=== PATIENT | male | born 1960 | race Two or more races ===

== ENCOUNTER 2020-07-11 15:26 | Emergency (ER) | payer OTHER ==
[~2020-07-11] VITALS: Ht 185.4 cm; Wt 90.7 kg
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
--- NOTE | 2020-07-11 15:49 | NUR ---
DR RAMIREZ AT BEDSIDE
[2020-07-11 16:15] LABS: BASOPHILS # (AUTO) 0.1 /CMM (0.0-0.2); BASOPHILS % (AUTO) 0.6 % (0.0-2.0); EOSINOPHILS % (AUTO) 1.2 % (0.0-6.0); HEMATOCRIT 45 % (39-51); HEMOGLOBIN 15.4 g/dL (13.5-17.5); LYMPHOCYTES # (AUTO) 2.2 /CMM (0.8-4.8); LYMPHOCYTES % (AUTO) 15.9 % (20.0-44.0); MEAN CORPUSCULAR HGB CONC 34 g/dl (31.0-36.0); MEAN CORPUSCULAR VOLUME 90 fL (80-96); MONOCYTES # (AUTO) 0.8 /CMM (0.1-1.30); MONOCYTES % (AUTO) 5.5 % (2.0-12.0); NEUTROPHILS # (AUTO) 10.6 /CMM (1.8-8.9); NEUTROPHILS % (AUTO) 76.8 % (43.0-81.0); PLATELET COUNT (AUTO) 356 /CMM (150-450); RED BLOOD CELL COUNT(AUTO) 5.02 MIL/uL (4.5-6.0); WHITE BLOOD COUNT (AUTO) 13.7 K/uL (4.3-11.0)
[2020-07-11 16:33] LABS: ALANINE AMINOTRANSFERASE 36 U/L (12-78); ALBUMIN 3.9 g/dL (3.4-5.0); ALKALINE PHOSPHATASE 83 U/L (46-116); ASPARTATE AMINOTRANSFERASE 29 U/L (15-37); BILIRUBIN,TOTAL 0.6 mg/dL (0.2-1.0); CALCIUM, SERUM 9.5 mg/dL (8.5-10.1); CARBON DIOXIDE 23 mmol/L (21-32); CHLORIDE 104 mmol/L (98-107); CREATININE 0.8 mg/dL (0.6-1.3); GLUCOSE 136 mg/dL (74-106); POTASSIUM 4.4 mmol/L (3.5-5.1); SODIUM SERUM 140 mmol/L (136-145); TOTAL PROTEIN, SERUM 7.9 g/dL (6.4-8.2); UREA NITROGEN, BLOOD 15 mg/dL (7-18)
--- NOTE | 2020-07-11 17:13 | NUR ---
IV removed. Catheter intact and site benign. Pressure and 4x4 applied to site. No bleeding noted.Patient discharged to home in stable condition. Written and verbal after care instructions given. Patient verbalizes understanding of instruction.
[2020-07-11 17:15] VITALS: BP 108/71
== END 2020-07-11 17:16 | disposition home or self-care (01) ==
LOC: ER 15:28
DX: I47.1 Supraventricular tachycardia (principal); F17.200 Nicotine dependence, unspecified, uncomplicated
CPT/HCPCS: 36415; 71045-TC; 80048-TC; 80076-TC; 84484-TC; 85025-TC

== ENCOUNTER 2023-04-08 00:10 | Emergency (ER) | payer OTHER ==
[~2023-04-08] VITALS: Ht 185.4 cm; Wt 111.1 kg
[2023-04-08 00:46] VITALS: BP 134/87; TEMP 98.2
[2023-04-08] MEDS ORDERED: CEPH500C2 PO (00:52)
[2023-04-08] MEDS ORDERED: CEPHALEXIN MONOHYDRATE 500 MG CAPSULE PO ONE ×2 (00:56→01:00)
[2023-04-08 00:59] VITALS: O2SAT 97
== END 2023-04-08 00:59 | disposition home or self-care (01) ==
LOC: ER 00:13
DX: L03.115 Cellulitis of right lower limb (principal); F17.200 Nicotine dependence, unspecified, uncomplicated; Z79.899 Other long term (current) drug therapy

== ENCOUNTER 2023-04-22 16:09 | Emergency (ER) | payer OTHER ==
[~2023-04-22] VITALS: Ht 185.4 cm; Wt 111.1 kg
[~2023-04-22 16:09] MED LIST: CEPH500C2 PO
[2023-04-22] MEDS ORDERED: CEFTRIAXONE 1 G VIAL IM ONE (17:30)
[2023-04-22] MEDS ORDERED: CEFTRIAXONE 1 G VIAL ONE (17:31)
[2023-04-22] MEDS ORDERED: LIDOCAINE 1% INJ 50 ML MDV IJ ONE (17:34)
[2023-04-22] MEDS ORDERED: SULF1TAB48 PO (19:00)
[2023-04-22] MEDS ORDERED: CLIN300C12 PO (19:00)
[2023-04-22 19:37] VITALS: BP 124/98; TEMP 98.1; O2SAT 98
== END 2023-04-22 19:38 | disposition home or self-care (01) ==
LOC: ER 16:10
DX: L03.115 Cellulitis of right lower limb (principal); I10 Essential (primary) hypertension; F17.200 Nicotine dependence, unspecified, uncomplicated
CPT/HCPCS: 99285; 93971; 96372; 84550; 36415; J3490; J0696